=== PATIENT | female | born 1980 | race American Indian/Alaskan Native ===

== ENCOUNTER 2016-10-29 20:23 | Observation (INO) | payer OTHER ==
[2016-10-29 20:45] VITALS: BMI 25.8
[2016-10-29] MEDS ORDERED: Sodium Chloride 0.9% 1,000 ML IV STA (20:46)
[2016-10-29 21:25] LABS: ADD MANUAL DIFF? NO
[2016-10-29 21:31] LABS: BASO # 0.04 K/mm3 (0.0-2.0); BASO % 0.4 % (0.0-3.0); EOS # 0.4 (0.0-0.7); EOS % 3.4 % (1.5-5.0); GRAN # 5.74 (1.4-6.5); GRAN % 53.5 % (50.0-68.0); HEMATOCRIT 40.9 % (36.0-48.0); LYMPH % 37.5 % (22.0-35.0); MEAN CELL VOLUME 81.3 fL (80.0-105.0); MEAN CORPUSCULAR HGB CONC 33.3 g/dl (31.0-37.0); MEAN PLATELET VOLUME 8.6 fl (7.0-11.0); MONO # 0.6 (0.1-0.6); MONO % 5.2 % (1.0-6.0); PLATELET COUNT 344 10^3/uL (120.0-450.0); RED CELL DISTRIBUTION WIDTH 14.1 % (11.5-14.5); URINE APPEARANCE CLEAR (CLEAR); URINE BILIRUBIN NEGATIVE (NEGATIVE); URINE BLOOD LARGE (NEGATIVE); URINE COLOR YELLOW (YELLOW); URINE GLUCOSE (UA) NEGATIVE (NEGATIVE); URINE KETONE NEGATIVE (NEGATIVE); URINE LEUKOCYTE ESTERASE NEGATIVE Leu/uL (NEGATIVE); URINE PROTEIN 30 mg/dL (<30 mg/dL); URINE UROBILINOGEN 0.2 E.U./dL (<1 E.U./dL); WHITE BLOOD COUNT 10.7 10^3/ul (4.5-11.0)
[2016-10-29 21:44] LABS: URINE BACTERIA MOD (NEG); URINE RBC TNTC /hpf (0-2)
[2016-10-29 21:52] LABS: BLOOD UREA NITROGEN 10 mg/dL (7-21); GFR AFRICAN-AMERICAN > 60; GLUCOSE,RANDOM 98 mg/dL (70-110)
[2016-10-29 21:53] LABS: ALKALINE PHOSPHATASE 94 U/L (38-133); ALT/SGPT 30 U/L (7-56); AST/SGOT 31 U/L (15-39); BILIRUBIN,TOTAL 0.6 mg/dL (0.2-1.3); CALCIUM 9.3 mg/dL (8.4-10.5); CARBON DIOXIDE 23 mmol/L (21-33); CHLORIDE 103 mmol/L (98-107); LIPASE 74 U/L (23-300); POTASSIUM 4.1 mmol/L (3.6-5.0); SODIUM 136 mmol/L (132-148)
--- NOTE | 2016-10-29 22:34 | ED PDOC ---
Arrival/HPI - General Chief Complaint: Seizure Time Seen by Provider: 10/29/16 20:26 Historian: Patient - History of Present Illness Narrative History of Present Illness (Text): 10/29/16 22:31 Britta Nunez is a 36 year old female, with a history of chronic back pain on Flexeril and Hydrocodone, presents to the emergency department s/p witnessed seizure episode. According to her son, patient was talking on the phone when he noticed that patient was diffusely twitching and foaming from the mouth. Patient does not recall the episode and states she does not have a history of seizures. Currently complains of severe dizziness. Denies fever, chills, chest pain, shortness of breath, nausea, vomiting, or any other complaints at this time. Time/Duration: Prior to Arrival Symptom Onset: Sudden Symptom Course: Improving Activities at Onset: Light Context: Home Past Medical History - Provider Review Nursing Documentation Reviewed: Yes - Musculoskeletal/Rheumatological Hx Back Pain: Yes - Psychiatric Hx Depression: Yes Hx Substance Use: No Family/Social History - Physician Review Nursing Documentation Reviewed: Yes Family/Social History: No Known Family HX Smoking Status: Unknown If Ever Smoked Hx Alcohol Use: No Hx Substance Use: No Allergies/Home Meds Allergies/Adverse Reactions: Allergies shellfish derived Allergy (Verified 10/29/16 20:35) ANAPHYLAXIS Home Medications: Home Meds Medication Instructions Recorded Confirmed Cetirizine HCl [All Day Allergy] 0 mg PO DAILY 10/29/16 10/29/16 Codeine [Codeine Sulfate] 0 mg PO DAILY PRN 10/29/16 10/29/16 Cyclobenzaprine [Flexeril] 0 mg PO DAILY 10/29/16 10/29/16 Didanosine [Videx EC] 0 mg PO DAILY 10/29/16 10/29/16 Escitalopram [Lexapro] 0 mg PO DAILY 10/29/16 10/29/16 Review of Systems - Physician Review All systems were reviewed & negative as marked: Yes - Review of Systems Constitutional: Normal. absent: Fatigue, Fevers Respiratory: Normal. absent: SOB, Cough Cardiovascular: Normal. absent: Chest Pain, Palpitations Gastrointestinal: Normal. absent: Abdominal Pain, Diarrhea, Nausea, Vomiting Genitourinary Female: Normal. absent: Dysuria Neurological: Dizziness, Seizure Physical Exam Vital Signs Reviewed: Yes Vital Signs Temp Pulse Resp BP Pulse Ox 10/30/16 01:07 92 H 98 H 205/94 H 32 L 10/30/16 00:45 86 32 H 154/57 H 100 10/29/16 23:55 84 18 142/86 100 10/29/16 20:30 98.3 F 95 H 18 196/53 H 100 Temperature: Afebrile Blood Pressure: Hypertensive Pulse: Regular Respiratory Rate: Normal Appearance: Positive for: Well-Appearing, Non-Toxic, Comfortable Pain Distress: None Mental Status: Positive for: Alert and Oriented X 3 - Systems Exam Head: Present: Atraumatic, Normocephalic Pupils: Present: PERRL Extroacular Muscles: Present: EOMI Conjunctiva: Present: Normal Mouth: Present: Moist Mucous Membranes, Other (? tongue biting) Pharnyx: Present: Normal. No: ERYTHEMA, EXUDATE Neck: Present: Normal Range of Motion. No: MIDLINE TENDERNESS, Paraspinal Tenderness Respiratory/Chest: Present: Clear to Auscultation, Good Air Exchange. No: Respiratory Distress, Accessory Muscle Use Cardiovascular: Present: Regular Rate and Rhythm, Normal S1, S2. No: Murmurs Abdomen: Present: Normal Bowel Sounds. No: Tenderness, Distention, Peritoneal Signs, Rebound, Guarding Upper Extremity: Present: Normal Inspection. No: Cyanosis, Edema Lower Extremity: Present: Normal Inspection. No: Edema Neurological: Present: GCS=15, CN II-XII Intact, Speech Normal, Motor Func Grossly Intact, Normal Sensory Function, Normal Cerebellar Funct Skin: Present: Warm, Dry, Normal Color. No: Rashes Psychiatric: Present: Alert, Oriented x 3, Anxious Medical Decision Making ED Course and Treatment: 10/29/16 22:35 Impression: A 36 year old female who presents to the emergency department for evaluation following witnessed seizure episode prior to arrival. Patient currently complaining of dizziness. Differential Diagnosis include but are not limited to: Flexeril induced seizures vs idiopathic vs intracranial abnormality Plan: -- CT Head -- EKG -- Drug Screen -- Chest X-ray -- IV fluids -- Reassess and disposition Progress Notes: 10/30/16 00:11 Patient experienced generalized hypertonic seizure in the emergency department, which was broken with 2mg Ativan and loading with keppra 10/30/16 00:56 CT head results reviewed: IMPRESSION: No acute cranial abnormality; sinusitis 10/30/16 01:09 Case discussed with who believes patient does not need the ICU and said to admit the patient on telemetry for new onset seizure. Accepts patient under hospitalist service. 10/30/16 01:14 Patient will be admitted for neuro eval, including MRI and EEG and will need additional treatment. Will need cessation of flexeril. - Critical Care Critical Care Minutes: 30 minutes - Lab Interpretations Lab Results: 10/29/16 21:13 10/29/16 21:13 Lab Results 10/29/16 23:30: Urine Opiates Screen Positive H, Urine Methadone Screen Negative , Ur Barbiturates Screen Negative, Ur Phencyclidine Scrn Negative, Ur Amphetamines Screen Negative, U Benzodiazepines Scrn Negative, U Oth Cocaine Metabols Negative, U Cannabinoids Screen Negative 10/29/16 21:13: Sodium 136, Potassium 4.1, Chloride 103, Carbon Dioxide 23, Anion Gap 14, BUN 10, Creatinine 0.7, Est GFR ( Amer) > 60, Est GFR (Non- Af Amer) > 60, Random Glucose 98, Calcium 9.3, Magnesium 2.0, Total Bilirubin 0.6, AST 31, ALT 30, Alkaline Phosphatase 94, Total Protein 8.0, Albumin 4.1, Globulin 4.0, Albumin/Globulin Ratio 1.0 L, Lipase 74 10/29/16 21:13: Alcohol, Quantitative < 10 10/29/16 21:13: Urine Color Yellow, Urine Appearance Clear, Urine pH 6.0, Ur Specific [place] 1.025, Urine Protein 30 H, Urine Glucose (UA) Negative, Urine Ketones Negative, Urine Blood Large H, Urine Nitrate Negative, Urine Bilirubin Negative, Urine Urobilinogen 0.2, Ur Leukocyte Esterase Negative, Urine RBC Tntc , Urine WBC 1 - 3, Ur Epithelial Cells 10 - 12, Urine Bacteria Mod, Urine HCG, Qual Negative 10/29/16 21:13: WBC 10.7, RBC 5.03, Hgb 13.6, Hct 40.9, MCV 81.3, MCH 27.0, MCHC 33.3, RDW 14.1, Plt Count 344, MPV 8.6, Gran % 53.5, Lymph % (Auto) 37.5 H , Kay % (Auto) 5.2, Eos % (Auto) 3.4, Baso % (Auto) 0.4, Gran # 5.74, Lymph # 4.0 H, Kay # 0.6, Eos # 0.4, Baso # 0.04 - RAD Interpretation Narrative RAD Interpretations (Text): 10/30/16 00:55 EXAM: CT Head Without Intravenous Contrast FINDINGS: Brain: Ventricles are normal in size and configuration. There is no midline shift. There are no intraaxial or extra-axial mass lesions or areas of hemorrhage. There are no abnormal fluid collections. Davis-white differentiation is maintained. Ventricles: See above. Bones: Cranial vault is intact. Soft tissues: unremarkable Sinuses: There is an air-fluid level in the right maxillary sinus. There has been right medial antrectomy. There is a small amount of debris in the right sphenoid sinus. There is mucoperiosteal thickening in the frontal sinuses. Ears and mastoids: Middle ears and mastoids are unremarkable. There is streak artifact from an earring Orbits: Orbital contents are unremarkable. IMPRESSION: No acute cranial abnormality; sinusitis Radiology Orders: 10/29/16 20:45 HEAD W/O CONTRAST [CT] Stat 10/29/16 20:46 CHEST PORTABLE [RAD] Stat State Wildlife Officer: Radiologist - Medication Orders Current Medication Orders: Discontinued Medications Sodium Chloride (Sodium Chloride 0.9%) 1,000 mls @ 999 mls/hr IV .Q1H1M STA Stop: 10/29/16 21:46 Last Admin: 10/29/16 20:45 Dose: 999 mls/hr Levetiracetam 1,000 mg/ Sodium (Chloride) 110 mls @ 440 mls/hr IV ONCE STA Stop: 10/30/16 00:28 Last Admin: 10/30/16 01:07 Dose: 440 mls/hr Labetalol HCl (Trandate) 20 mg IV STAT STA Stop: 10/30/16 01:09 Lorazepam (Ativan) Confirm Administered Dose 2 mg .ROUTE .STK-MED ONE Stop: 10/30/16 00:08 Last Admin: 10/30/16 00:11 Dose: 2 mg - Scribe Statement The provider has reviewed the documentation as recorded by the Vesna Ritter Provider Attestation: All medical record entries made by the Vesna were at my direction and personally dictated by me. I have reviewed the chart and agree that the record accurately reflects my personal performance of the history, physical exam, medical decision making, and the department course for this patient. I have also personally directed, reviewed, and agree with the discharge instructions and disposition. Disposition/Present on Arrival - Present on Arrival Any Indicators Present on Arrival: No History of DVT/PE: No History of Uncontrolled Diabetes: No Urinary Catheter: No History of Decub. Ulcer: No History Surgical Site Infection Following: None - Disposition Have Diagnosis and Disposition been Completed?: Yes Diagnosis: New onset seizure, Uncontrolled hypertension Disposition: HOSPITALIZED Disposition Time: 01:10 Patient Plan: Admission, Telemetry Patient Problems: Current Active Problems Problem Status Onset New onset seizure Acute Uncontrolled hypertension Acute Condition: STABLE Referrals: Gilda Stevenson, [Primary Care Provider] - Follow up with primary
--- NOTE | 2016-10-30 00:45 | CT ---
EXAM: CT Head Without Intravenous Contrast CLINICAL HISTORY: 36 years old, female; Signs and symptoms; Other: Siezure; Additional info: Seizure TECHNIQUE: Axial computed tomography images of the head/brain without intravenous contrast. This CT exam was performed using one or more of the following dose reduction techniques: automated exposure control, adjustment of the mA and/or kV according to patient size, and/or use of iterative reconstruction technique. EXAM DATE/TIME: 10/29/2016 8:45 PM COMPARISON: There are no prior studies for comparison. FINDINGS: Brain: Ventricles are normal in size and configuration. There is no midline shift. There are no intra-axial or extra-axial mass lesions or areas of hemorrhage. There are no abnormal fluid collections. Davis-white differentiation is maintained. Ventricles: See above. Bones: Cranial vault is intact. Soft tissues: unremarkable Sinuses: There is an air-fluid level in the right maxillary sinus. There has been right medial antrectomy. There is a small amount of debris in the right sphenoid sinus. There is mucoperiosteal thickening in the frontal sinuses. Ears and mastoids: Middle ears and mastoids are unremarkable. There is streak artifact from an earring Orbits: Orbital contents are unremarkable. IMPRESSION: No acute cranial abnormality; sinusitis
[2016-10-30] MEDS: levETIRAcetam 1,000 MG in Sodium Chloride 0.9% 100 ML IV STA ×3 (00:49→20:46)
[2016-10-30] MEDS: Labetalol 5 mg/ml Inj 20ML IV STA ×2 (01:18→20:47)
--- NOTE | 2016-10-30 01:45 | CP.PCM.CON ---
<Esequiel Srivastava - Last Filed: 10/30/16 01:27> History of Present Illness - History of Present Illness History of Present Illness: ICU NIGHT RESIDENT CONSULT NOTE CC: "Seizure" HPI: Pt is a 36 year old female with a PMHx of chronic back pain who presented to the ED via EMS after she was seen having a witnessed seizure by her son. PT is accompanied by her mother at bedside. At time of examination, pt is asleep and lethargic due to ativan being given. According to her mother, the pt was speaking on the phone when she started to shake and foam at the mouth. This was reported to the pt's mother by the pt's son, who witnessed the event. According to the mother, the pt has never had a seizure before and she takes medication for chronic back pain. According to the mother, pt had another seizure in the ED where she began to shake was given ativan. Pt's mother reports that her daughter was speaking and tlaking after her first seizure. ROS unattainable due to pt being lethargic after ativan was given. History obtained from the mother. PMHx: Chronic back pain, sinusitis Past Surgical Hx: Sinus surgery at the [facility] Home medications: As per mar, flexeril, codeine, lexparo, videx Allergies: Shellfish Social Hx: smokes 8-10 cigarettes/day as per mother, no alcohol or drug abuse as per mother Family Hx: Diabetes Mellitus, [place] ( mother) Review of Systems - Review of Systems Systems not reviewed;Unavailable: Altered Mental Status, Other (lethargic due to ativan) Past Patient History - Past Social History Smoking Status: Unknown If Ever Smoked - MUSCULOSKELETAL/RHEUMATOLOGICAL Hx Back Pain: Yes - PSYCHIATRIC Hx Depression: Yes Hx Substance Use: No - SURGICAL HISTORY Hx Surgeries: No Meds Allergies/Adverse Reactions: Allergies Allergy/AdvReac Type Severity Reaction Status Date / Time shellfish derived Allergy ANAPHYLAXIS Verified 10/29/16 20:35 Physical Exam - Constitutional Appears: No Acute Distress - Head Exam Head Exam: ATRAUMATIC, NORMOCEPHALIC - ENT Exam ENT Exam: Mucous Membranes Moist - Neck Exam Neck exam: Positive for: Full Rom - Respiratory Exam Respiratory Exam: Clear to Auscultation Bilateral. absent: Rales, Rhonchi, Wheezes - Cardiovascular Exam Cardiovascular Exam: +S1, +S2. absent: Gallop, Rubs - GI/Abdominal Exam GI & Abdominal Exam: Soft. absent: Distended - Extremities Exam Extremities exam: Positive for: full ROM. Negative for: pedal edema - Neurological Exam Additional comments: Lethargic - Skin Skin Exam: Normal Color, Warm Results - Vital Signs Recent Vital Signs: Last Vital Signs Temp 98.3 F 10/29/16 20:30 Pulse 92 H 10/30/16 01:07 Resp 98 H 10/30/16 01:07 BP 205/94 H 10/30/16 01:07 Pulse Ox 32 L 10/30/16 01:07 - Labs Result Diagrams: 10/29/16 21:13 10/29/16 21:13 Labs: Laboratory Results - last 24 hr 10/29/16 10/29/16 10/29/16 21:13 21:13 21:13 WBC 10.7 RBC 5.03 Hgb 13.6 Hct 40.9 MCV 81.3 MCH 27.0 MCHC 33.3 RDW 14.1 Plt Count 344 MPV 8.6 Gran % 53.5 Lymph % (Auto) 37.5 H [place] % (Auto) 5.2 Eos % (Auto) 3.4 Baso % (Auto) 0.4 Gran # 5.74 Lymph # 4.0 H [place] # 0.6 Eos # 0.4 Baso # 0.04 Sodium Potassium Chloride Carbon Dioxide Anion Gap BUN Creatinine Est GFR ( Amer) Est GFR (Non-Af Amer) Random Glucose Calcium Magnesium Total Bilirubin AST ALT Alkaline Phosphatase Total Protein Albumin Globulin Albumin/Globulin Ratio Lipase Urine Color Yellow Urine Appearance Clear Urine pH 6.0 Ur Specific [place] 1.025 Urine Protein 30 H Urine Glucose (UA) Negative Urine Ketones Negative Urine Blood Large H Urine Nitrate Negative Urine Bilirubin Negative Urine Urobilinogen 0.2 Ur Leukocyte Esterase Negative Urine RBC Tntc Urine WBC 1 - 3 Ur Epithelial Cells 10 - 12 Urine Bacteria Mod Urine HCG, Qual Negative Urine Opiates Screen Urine Methadone Screen Ur Barbiturates Screen Ur Phencyclidine Scrn Ur Amphetamines Screen U Benzodiazepines Scrn U Oth Cocaine Metabols U Cannabinoids Screen Alcohol, Quantitative < 10 10/29/16 10/29/16 21:13 23:30 WBC RBC Hgb Hct MCV MCH MCHC RDW Plt Count MPV Gran % Lymph % (Auto) [place] % (Auto) Eos % (Auto) Baso % (Auto) Gran # Lymph # [place] # Eos # Baso # Sodium 136 Potassium 4.1 Chloride 103 Carbon Dioxide 23 Anion Gap 14 BUN 10 Creatinine 0.7 Est GFR ( Amer) > 60 Est GFR (Non-Af Amer) > 60 Random Glucose 98 Calcium 9.3 Magnesium 2.0 Total Bilirubin 0.6 AST 31 ALT 30 Alkaline Phosphatase 94 Total Protein 8.0 Albumin 4.1 Globulin 4.0 Albumin/Globulin Ratio 1.0 L Lipase 74 Urine Color Urine Appearance Urine pH Ur Specific [place] Urine Protein Urine Glucose (UA) Urine Ketones Urine Blood Urine Nitrate Urine Bilirubin Urine Urobilinogen Ur Leukocyte Esterase Urine RBC Urine WBC Ur Epithelial Cells Urine Bacteria Urine HCG, Qual Urine Opiates Screen Positive H Urine Methadone Screen Negative Ur Barbiturates Screen Negative Ur Phencyclidine Scrn Negative Ur Amphetamines Screen Negative U Benzodiazepines Scrn Negative U Oth Cocaine Metabols Negative U Cannabinoids Screen Negative Alcohol, Quantitative Assessment & Plan - Assessment and Plan (Free Text) Assessment: New onset seizure: Afebrile, HR-[address] - no acute intracranial abnormality; sinusitis (please see full report). Keppra 1 gm given in ED Neurology, Dr. Isaac taylor, consulted. Help appreciated. EEG pending UDS positive for opiates, likely secondary to home pain meds Seizure/Aspiration precautions Home medications held NPO Telemetry Hypertensive urgency: Hydralazine 10 mg IV q6h prn Prophylactic Measures: DVT: SCDs, Heparin 5000 units sc q12h GI: Protonix 40 mg IV qd <Angela GEORGE,Timmy - Last Filed: 11/04/16 05:47> Results - Vital Signs Recent Vital Signs: Last Vital Signs Temp 98.5 F 10/31/16 11:36 Pulse 78 10/31/16 16:44 Resp 20 10/31/16 11:36 BP 133/87 10/31/16 11:36 Pulse Ox 100 10/31/16 06:00 - Labs Result Diagrams: 10/30/16 09:15 10/30/16 09:15
[2016-10-30] MEDS ORDERED: Sodium Chloride 0.9% 1,000 ML IV SCH (02:00)
--- NOTE | 2016-10-30 02:00 | CP.PCM.HP ---
<Esequiel Srivastava - Last Filed: 10/30/16 01:58> History of Present Illness - History of Present Illness History of Present Illness: CC: "Seizure" HPI: Pt is a 36 year old female with a PMHx of chronic back pain who presented to the ED via EMS after she was seen having a witnessed seizure by her son. PT is accompanied by her mother at bedside. At time of examination, pt is asleep and lethargic due to ativan being given. According to her mother, the pt was speaking on the phone when she started to shake and foam at the mouth. This was reported to the pt's mother by the pt's son, who witnessed the event. According to the mother, the pt has never had a seizure before and she takes medication for chronic back pain. According to the mother, pt had another seizure in the ED where she began to shake was given ativan. Pt's mother reports that her daughter was speaking and tlaking after her first seizure. ROS unattainable due to pt being lethargic after ativan was given. History obtained from the mother. PMHx: Chronic back pain, sinusitis Past Surgical Hx: Sinus surgery at the [facility] Home medications: As per mar, flexeril, codeine, lexparo, videx Allergies: Shellfish Social Hx: smokes 8-10 cigarettes/day as per mother, no alcohol or drug abuse as per mother Family Hx: Diabetes Mellitus, [place] ( mother) Present on Admission - Present on Admission Any Indicators Present on Admission: No Review of Systems - Review of Systems Systems not reviewed;Unavailable: Altered Mental Status (Pt lethargic due to ativan being given secondary to seizures), Other Past Patient History - Past Social History Smoking Status: Unknown If Ever Smoked - MUSCULOSKELETAL/RHEUMATOLOGICAL Hx Back Pain: Yes - PSYCHIATRIC Hx Depression: Yes Hx Substance Use: No - SURGICAL HISTORY Hx Surgeries: No Meds Allergies/Adverse Reactions: Allergies Allergy/AdvReac Type Severity Reaction Status Date / Time shellfish derived Allergy ANAPHYLAXIS Verified 10/29/16 20:35 Physical Exam - Constitutional Appears: No Acute Distress - Head Exam Head Exam: ATRAUMATIC, NORMOCEPHALIC - ENT Exam ENT Exam: Mucous Membranes Moist. absent: Mucous Membranes Dry - Respiratory Exam Respiratory Exam: Clear to Auscultation Bilateral. absent: Rales, Rhonchi, Wheezes - Cardiovascular Exam Cardiovascular Exam: +S1, +S2. absent: Gallop, Rubs - GI/Abdominal Exam GI & Abdominal Exam: Normal Bowel Sounds, Soft - Neurological Exam Additional comments: Lethargic - Skin Skin Exam: Normal Color, Warm Results - Vital Signs Recent Vital Signs: Last Vital Signs Temp 98.3 F 10/29/16 20:30 Pulse 92 H 10/30/16 01:07 Resp 98 H 10/30/16 01:07 BP 205/94 H 10/30/16 01:07 Pulse Ox 32 L 10/30/16 01:07 - Labs Result Diagrams: 10/29/16 21:13 10/29/16 21:13 Labs: Laboratory Results - last 24 hr 10/29/16 10/29/16 10/29/16 21:13 21:13 21:13 WBC 10.7 RBC 5.03 Hgb 13.6 Hct 40.9 MCV 81.3 MCH 27.0 MCHC 33.3 RDW 14.1 Plt Count 344 MPV 8.6 Gran % 53.5 Lymph % (Auto) 37.5 H [place] % (Auto) 5.2 Eos % (Auto) 3.4 Baso % (Auto) 0.4 Gran # 5.74 Lymph # 4.0 H [place] # 0.6 Eos # 0.4 Baso # 0.04 Sodium Potassium Chloride Carbon Dioxide Anion Gap BUN Creatinine Est GFR ( Amer) Est GFR (Non-Af Amer) Random Glucose Calcium Magnesium Total Bilirubin AST ALT Alkaline Phosphatase Total Protein Albumin Globulin Albumin/Globulin Ratio Lipase Urine Color Yellow Urine Appearance Clear Urine pH 6.0 Ur Specific [place] 1.025 Urine Protein 30 H Urine Glucose (UA) Negative Urine Ketones Negative Urine Blood Large H Urine Nitrate Negative Urine Bilirubin Negative Urine Urobilinogen 0.2 Ur Leukocyte Esterase Negative Urine RBC Tntc Urine WBC 1 - 3 Ur Epithelial Cells 10 - 12 Urine Bacteria Mod Urine HCG, Qual Negative Urine Opiates Screen Urine Methadone Screen Ur Barbiturates Screen Ur Phencyclidine Scrn Ur Amphetamines Screen U Benzodiazepines Scrn U Oth Cocaine Metabols U Cannabinoids Screen Alcohol, Quantitative < 10 10/29/16 10/29/16 21:13 23:30 WBC RBC Hgb Hct MCV MCH MCHC RDW Plt Count MPV Gran % Lymph % (Auto) [place] % (Auto) Eos % (Auto) Baso % (Auto) Gran # Lymph # [place] # Eos # Baso # Sodium 136 Potassium 4.1 Chloride 103 Carbon Dioxide 23 Anion Gap 14 BUN 10 Creatinine 0.7 Est GFR ( Amer) > 60 Est GFR (Non-Af Amer) > 60 Random Glucose 98 Calcium 9.3 Magnesium 2.0 Total Bilirubin 0.6 AST 31 ALT 30 Alkaline Phosphatase 94 Total Protein 8.0 Albumin 4.1 Globulin 4.0 Albumin/Globulin Ratio 1.0 L Lipase 74 Urine Color Urine Appearance Urine pH Ur Specific [place] Urine Protein Urine Glucose (UA) Urine Ketones Urine Blood Urine Nitrate Urine Bilirubin Urine Urobilinogen Ur Leukocyte Esterase Urine RBC Urine WBC Ur Epithelial Cells Urine Bacteria Urine HCG, Qual Urine Opiates Screen Positive H Urine Methadone Screen Negative Ur Barbiturates Screen Negative Ur Phencyclidine Scrn Negative Ur Amphetamines Screen Negative U Benzodiazepines Scrn Negative U Oth Cocaine Metabols Negative U Cannabinoids Screen Negative Alcohol, Quantitative Assessment & Plan - Assessment and Plan (Free Text) Assessment: New onset seizure: Afebrile, HR-[address] - no acute intracranial abnormality; sinusitis (please see full report). Keppra 1 gm given in ED Neurology, Dr. Isaac taylor, consulted. Help appreciated. EEG pending UDS positive for opiates, likely secondary to home pain meds Seizure/Aspiration precautions Home medications held NPO Telemetry Hypertensive urgency: Hydralazine 10 mg IV q6h prn Prophylactic Measures: DVT: SCDs, Heparin 5000 units sc q12h GI: Protonix 40 mg IV qd <Angela GEORGE,Timmy - Last Filed: 10/30/16 14:37> Results - Vital Signs Recent Vital Signs: Last Vital Signs Temp 100 F H 10/30/16 12:00 Pulse 90 10/30/16 12:00 Resp 18 10/30/16 12:00 BP 102/60 10/30/16 12:00 Pulse Ox 100 10/30/16 06:00 - Labs Result Diagrams: 10/30/16 09:15 10/30/16 09:15 Labs: Laboratory Results - last 24 hr 10/30/16 10/30/16 10/30/16 09:15 09:15 09:15 WBC 10.5 RBC 4.56 Hgb 12.3 Hct 37.0 MCV 81.1 MCH 27.0 MCHC 33.2 RDW 14.0 Plt Count 333 MPV 8.4 Gran % 64.7 Lymph % (Auto) 27.0 [place] % (Auto) 6.8 H Eos % (Auto) 1.3 L Baso % (Auto) 0.2 Gran # 6.81 H Lymph # 2.9 [place] # 0.7 H Eos # 0.1 Baso # 0.02 APTT 24.4 Sodium 140 Potassium 3.6 Chloride 109 H Carbon Dioxide 24 Anion Gap 11 BUN 7 Creatinine 0.7 Est GFR ( Amer) > 60 Est GFR (Non-Af Amer) > 60 Random Glucose 78 Calcium 8.5 Phosphorus 2.8 Magnesium 2.0 Total Bilirubin 0.7 AST 21 ALT 27 Alkaline Phosphatase 85 Total Protein 6.8 Albumin 3.3 Globulin 3.5 Albumin/Globulin Ratio 0.9 L Attending/Attestation - Attestation I have personally seen and examined this patient.: Yes I have fully participated in the care of the patient.: Yes I have reviewed all pertinent clinical information: Yes Notes (Text): 10/30/16 14:36 -I agree with the above H&P completed by the resident physician.
[2016-10-30 02:13] VITALS: O2SAT 100
[2016-10-30] MEDS: Metoprolol 1 mg/ml Inj IVP STA ×2 (02:59→20:47)
[2016-10-30] MEDS: Sodium Chloride 0.9% 250 ML IV SCH ×3 (03:43→20:47)
[2016-10-30] MEDS ORDERED: Pneumococcal 23-Valent Vaccine IM ONE (05:18)
--- NOTE | 2016-10-30 08:53 | RAD ---
HISTORY: new onset seizure COMPARISON: No prior. FINDINGS: LUNGS: The lungs are clear. PLEURA: No significant pleural effusion identified, no pneumothorax apparent. CARDIOVASCULAR: Normal. OSSEOUS STRUCTURES: No significant abnormalities. VISUALIZED UPPER ABDOMEN: Normal. OTHER FINDINGS: None. IMPRESSION: No acute findings.
[2016-10-30 09:22] LABS: ADD MANUAL DIFF? NO
[2016-10-30 09:29] LABS: BASO # 0.02 K/mm3 (0.0-2.0); BASO % 0.2 % (0.0-3.0); EOS # 0.1 (0.0-0.7); EOS % 1.3 % (1.5-5.0); GRAN # 6.81 (1.4-6.5); GRAN % 64.7 % (50.0-68.0); LYMPH # 2.9 (1.2-3.4); MEAN CELL VOLUME 81.1 fL (80.0-105.0); MEAN CORPUSCULAR HGB CONC 33.2 g/dl (31.0-37.0); MEAN PLATELET VOLUME 8.4 fl (7.0-11.0); MONO # 0.7 (0.1-0.6); MONO % 6.8 % (1.0-6.0); PLATELET COUNT 333 10^3/uL (120.0-450.0); WHITE BLOOD COUNT 10.5 10^3/ul (4.5-11.0)
[2016-10-30 09:36] LABS: ALB/GLOB RATIO 0.9 (1.1-1.8); ALKALINE PHOSPHATASE 85 U/L (38-133); ALT/SGPT 27 U/L (7-56); AST/SGOT 21 U/L (15-39); BILIRUBIN,TOTAL 0.7 mg/dL (0.2-1.3); BLOOD UREA NITROGEN 7 mg/dL (7-21); CALCIUM 8.5 mg/dL (8.4-10.5); CARBON DIOXIDE 24 mmol/L (21-33); CHLORIDE 109 mmol/L (98-107); GFR AFRICAN-AMERICAN > 60; GLUCOSE,RANDOM 78 mg/dL (70-110); PHOSPHOROUS 2.8 mg/dL (2.5-4.5); POTASSIUM 3.6 mmol/L (3.6-5.0); SODIUM 140 mmol/L (132-148); TOTAL PROTEIN 6.8 g/dL (5.8-8.3)
[2016-10-30] MEDS ORDERED: Lidocaine 2% Viscous 100 ml PO PRN (12:44)
--- NOTE | 2016-10-30 13:22 | CP.PCM.PN ---
Subjective - Date & Time of Evaluation Date of Evaluation: 10/30/16 Time of Evaluation: 07:35 - Subjective Subjective: Pt seen and evaluated at bedside. Pt is lethargic but rousable. Denies pain except from sore tongue, and denies SKELTON, SOB, chest pain, abdominal pain, n/v, urinary symptoms and denies irregular stool. Objective - Vital Signs/Intake and Output Vital Signs (last 24 hours): Temp Pulse Resp BP Pulse Ox 100 F H 90 18 102/60 100 10/30/16 12:00 10/30/16 12:00 10/30/16 12:00 10/30/16 12:00 10/30/16 06:00 Intake and Output: 10/30/16 10/30/16 06:59 18:59 Intake Total 0 Output Total 0 Balance 0 - Medications Medications: Current Medications Heparin Sodium (Porcine) (Heparin) 5,000 units SC Q12 KISHA PRN Reason: Protocol Last Admin: 10/30/16 09:00 Dose: 5,000 units Hydralazine HCl (Apresoline) 10 mg IVP Q6H PRN PRN Reason: Systolic Blood Pressure Last Admin: 10/30/16 02:12 Dose: 10 mg Lidocaine HCl (Lidocaine 2% Viscous) 15 ml MM Q3H PRN PRN Reason: SWISH AND SPIT FOR MOUTH PAIN. Lorazepam (Ativan) 2 mg IVP Q6H PRN; Protocol PRN Reason: Seizure activity Pantoprazole Sodium (Protonix Inj) 40 mg IVP DAILY [facility] Last Admin: 10/30/16 09:00 Dose: 40 mg - Labs Labs: 10/30/16 09:15 10/30/16 09:15 APTT 24.4 Seconds (23.7-30.8) 10/30/16 09:15
--- NOTE | 2016-10-30 17:12 | CARD ---
APPROVED REPORT EKG Measurement Heart [id number] <Conclusion> Sinus rhythm with marked sinus arrhythmia Otherwise normal ECG
[2016-10-30 18:12] VITALS: RESP 20
--- NOTE | 2016-10-30 19:56 | MRI ---
EXAM: MR Head Without Intravenous Contrast CLINICAL HISTORY: 36 years old, female; Injury or trauma; Fall; Initial encounter; Concussion / head injury; Consciousness not specified; Injury date: Unsure; Injury details: Patient fell, ? seizures. Limited study patient moving a lot even with sedation; Additional info: Seizures; Patient fell and hit head TECHNIQUE: Magnetic resonance images of the head/brain without intravenous contrast in multiple planes. EXAM DATE/TIME: 10/30/2016 6:07 PM COMPARISON: Recent head CT of 10/30/2016 12:24 AM FINDINGS: LIMITATIONS: Exam is limited by moderate motion artifact. BRAIN: No evidence of restricted diffusion/acute infarct. No findings to suggest acute intracranial hemorrhage. No signal abnormality is seen to suggest significant intracranial edema. No acute extra-axial fluid collections visualized. No evidence of significant mass effect within the brain. VENTRICLES: No evidence of significant hydrocephalus. BONES/JOINTS: No acute bony abnormality visualized. SINUSES: Pansinus inflammatory disease. There is mild to moderate mucosal thickening in the bilateral maxillary, bilateral anterior ethmoid, and bilateral frontal sinuses. There is fluid in the right maxillary sinus, which is most likely secondary to acute sinusitis. MASTOID AIR CELLS: No evidence of significant mastoid fluid. SELLA: Incidental note is made of a partially empty sella. IMPRESSION: - No acute intracranial findings seen, allowing for motion artifact. - See above for remaining findings.
[2016-10-31 11:39] VITALS: BP 133/87; TEMP 98.5
--- NOTE | 2016-10-31 16:35 | CP.PCM.DIS ---
<Padmini Colvin - Last Filed: 11/19/16 00:21> Provider - Provider Date of Admission: 10/30/16 01:09 Attending physician: Adeel Toussaint MD Primary care physician: singh Guthrie in [place] system [facility] Consults: Dr. Weathers Time Spent in preparation of Discharge (in minutes): 35 Hospital Course - Lab Results Lab Results: Most Recent Lab Values WBC 10.5 10^3/ul (4.5-11.0) 10/30/16 09:15 RBC 4.56 10^6/uL (3.5-6.1) 10/30/16 09:15 Hgb 12.3 gm/dL (12.0-16.0) 10/30/16 09:15 Hct 37.0 % (36.0-48.0) 10/30/16 09:15 MCV 81.1 fL (80.0-105.0) 10/30/16 09:15 MCH 27.0 pg (25.0-35.0) 10/30/16 09:15 MCHC 33.2 g/dl (31.0-37.0) 10/30/16 09:15 RDW 14.0 % (11.5-14.5) 10/30/16 09:15 Plt Count 333 10^3/uL (120.0-450.0) 10/30/16 09:15 MPV 8.4 fl (7.0-11.0) 10/30/16 09:15 Gran % 64.7 % (50.0-68.0) 10/30/16 09:15 Lymph % (Auto) 27.0 % (22.0-35.0) 10/30/16 09:15 [place] % (Auto) 6.8 % (1.0-6.0) H 10/30/16 09:15 Eos % (Auto) 1.3 % (1.5-5.0) L 10/30/16 09:15 Baso % (Auto) 0.2 % (0.0-3.0) 10/30/16 09:15 Gran # 6.81 (1.4-6.5) H 10/30/16 09:15 Lymph # 2.9 (1.2-3.4) 10/30/16 09:15 [place] # 0.7 (0.1-0.6) H 10/30/16 09:15 Eos # 0.1 (0.0-0.7) 10/30/16 09:15 Baso # 0.02 K/mm3 (0.0-2.0) 10/30/16 09:15 APTT 24.4 Seconds (23.7-30.8) 10/30/16 09:15 Sodium 140 mmol/L (132-148) 10/30/16 09:15 Potassium 3.6 mmol/L (3.6-5.0) 10/30/16 09:15 Chloride 109 mmol/L (98-107) H 10/30/16 09:15 Carbon Dioxide 24 mmol/L (21-33) 10/30/16 09:15 Anion Gap 11 (10-20) 10/30/16 09:15 BUN 7 mg/dL (7-21) 10/30/16 09:15 Creatinine 0.7 mg/dL (0.5-1.4) 10/30/16 09:15 Est GFR ( Amer) > 60 10/30/16 09:15 Est GFR (Non-Af Amer) > 60 10/30/16 09:15 Random Glucose 78 mg/dL (70-110) 10/30/16 09:15 Calcium 8.5 mg/dL (8.4-10.5) 10/30/16 09:15 Phosphorus 2.8 mg/dL (2.5-4.5) 10/30/16 09:15 Magnesium 2.0 mg/dL (1.7-2.2) 10/30/16 09:15 Total Bilirubin 0.7 mg/dL (0.2-1.3) 10/30/16 09:15 AST 21 U/L (15-39) 10/30/16 09:15 ALT 27 U/L (7-56) 10/30/16 09:15 Alkaline Phosphatase 85 U/L (38-133) 10/30/16 09:15 Total Protein 6.8 g/dL (5.8-8.3) 10/30/16 09:15 Albumin 3.3 g/dL (3.0-4.8) 10/30/16 09:15 Globulin 3.5 gm/dL 10/30/16 09:15 Albumin/Globulin Ratio 0.9 (1.1-1.8) L 10/30/16 09:15 Lipase 74 U/L (23-300) 10/29/16 21:13 Urine Color Yellow (YELLOW) 10/29/16 21:13 Urine Appearance Clear (CLEAR) 10/29/16 21:13 Urine pH 6.0 (4.7-8.0) 10/29/16 21:13 Ur Specific [place] 1.025 (1.005-1.035) 10/29/16 21:13 Urine Protein 30 mg/dL (<30 mg/dL) H 10/29/16 21:13 Urine Glucose (UA) Negative mg/dL (NEGATIVE) 10/29/16 21:13 Urine Ketones Negative mg/dL (NEGATIVE) 10/29/16 21:13 Urine Blood Large (NEGATIVE) H 10/29/16 21:13 Urine Nitrate Negative (NEGATIVE) 10/29/16 21:13 Urine Bilirubin Negative (NEGATIVE) 10/29/16 21:13 Urine Urobilinogen 0.2 E.U./dL (<1 E.U./dL) 10/29/16 21:13 Ur Leukocyte Esterase Negative Stephanie/uL (NEGATIVE) 10/29/16 21:13 Urine RBC Tntc /hpf (0-2) 10/29/16 21:13 Urine WBC 1 - 3 /hpf (0-6) 10/29/16 21:13 Ur Epithelial Cells 10 - 12 /hpf (0-5) 10/29/16 21:13 Urine Bacteria Mod (NEG) 10/29/16 21:13 Urine HCG, Qual Negative (NEGATIVE) 10/29/16 21:13 Urine Opiates Screen Positive (NEGATIVE) H 10/29/16 23:30 Urine Methadone Screen Negative (NEGATIVE) 10/29/16 23:30 Ur Barbiturates Screen Negative (NEGATIVE) 10/29/16 23:30 Ur Phencyclidine Scrn Negative (NEGATIVE) 10/29/16 23:30 Ur Amphetamines Screen Negative (NEGATIVE) 10/29/16 23:30 U Benzodiazepines Scrn Negative (NEGATIVE) 10/29/16 23:30 U Oth Cocaine Metabols Negative (NEGATIVE) 10/29/16 23:30 U Cannabinoids Screen Negative (NEGATIVE) 10/29/16 23:30 Alcohol, Quantitative < 10 mg/dL (0-10) 10/29/16 21:13 - Hospital Course Hospital Course: 36 year old female with a PMHx of chronic back pain who presented to the ED via EMS after she was seen having a witnessed seizure. Pt was speaking on the phone when she started to shake and foam at the mouth. Pt has never had a seizure before. Pt had another seizure in the ED where she began to shake, and was given ativan. Pt was speaking and talking after her first seizure. Admitted for Generalized tonic-clonic seizure to telemetry. On floor, Neurology was consulted and pt administered Keppra 500mg BID and remained without seizure throughout admission, without need for use of active ativan prn. MRI brain w/o contrast: no acute findings. EEG: "diffuse slowing throughout recording, consisitent w/ b/l cerebral dysfunction. No evidence of any epileptiform activity." D/C in stable condition with the following instructions: You are discharged home. Please follow-up with your primary care doctor within a week. Please follow-up with Dr. Weathers within a week. Please start your new medication of Keppra 500mg by mouth twice daily. Please do not drive. Please stop using tramadol. Please return to the emergency department for worsening of symptoms. Discharge Exam - Head Exam Head Exam: ATRAUMATIC, NORMOCEPHALIC - Eye Exam Eye Exam: EOMI, Normal appearance Pupil Exam: NORMAL ACCOMODATION, PERRL - Respiratory Exam Respiratory Exam: Clear to PA & Lateral, NORMAL BREATHING PATTERN - Cardiovascular Exam Cardiovascular Exam: +S1, +S2. absent: Tachycardia - GI/Abdominal Exam GI & Abdominal Exam: Soft. absent: Tenderness - Exam External exam: absent: Lesions, Swelling - Extremities Exam Extremities exam: normal inspection, pedal pulses present - Back Exam Back exam: absent: CVA tenderness (L), CVA tenderness (R) - Neurological Exam Neurological exam: Alert, Oriented x3 - Skin Skin Exam: Normal Color, Warm Discharge Plan - Discharge Medications Prescriptions: Levetiracetam [Keppra] 500 mg PO BID #28 tablet - Follow Up Plan Condition: STABLE Disposition: HOME/ ROUTINE Instructions: Hypertension (DC), Hypertension (GEN), New-Onset Seizure in Adults (DC) Additional Instructions: You are discharged home. Please follow-up with your primary care doctor within a week. Please follow-up with Dr. Weathers within a week. Please start your new medication of Keppra 500mg by mouth twice daily. Please do not drive. Please stop using tramadol. Please return to the emergency department for worsening of symptoms. ANY CHEST PAIN, SHORTNESS OF BREATH OR SEIZURE ACTIVITY PLEASE CALL 911 MEDS PER MD ORDERS FOLLOW UP WITH PMD IN THE OFFICE Referrals: Jase Weathers MD [Staff Provider] - <Adeel Toussaint MD - Last Filed: 11/23/16 10:24> Provider - Provider Date of Admission: 10/30/16 01:09 Attending physician: Adeel Toussaint MD Hospital Course - Lab Results Lab Results: Most Recent Lab Values WBC 10.5 10^3/ul (4.5-11.0) 10/30/16 09:15 RBC 4.56 10^6/uL (3.5-6.1) 10/30/16 09:15 Hgb 12.3 gm/dL (12.0-16.0) 10/30/16 09:15 Hct 37.0 % (36.0-48.0) 10/30/16 09:15 MCV 81.1 fL (80.0-105.0) 10/30/16 09:15 MCH 27.0 pg (25.0-35.0) 10/30/16 09:15 MCHC 33.2 g/dl (31.0-37.0) 10/30/16 09:15 RDW 14.0 % (11.5-14.5) 10/30/16 09:15 Plt Count 333 10^3/uL (120.0-450.0) 10/30/16 09:15 MPV 8.4 fl (7.0-11.0) 10/30/16 09:15 Gran % 64.7 % (50.0-68.0) 10/30/16 09:15 Lymph % (Auto) 27.0 % (22.0-35.0) 10/30/16 09:15 [place] % (Auto) 6.8 % (1.0-6.0) H 10/30/16 09:15 Eos % (Auto) 1.3 % (1.5-5.0) L 10/30/16 09:15 Baso % (Auto) 0.2 % (0.0-3.0) 10/30/16 09:15 Gran # 6.81 (1.4-6.5) H 10/30/16 09:15 Lymph # 2.9 (1.2-3.4) 10/30/16 09:15 [place] # 0.7 (0.1-0.6) H 10/30/16 09:15 Eos # 0.1 (0.0-0.7) 10/30/16 09:15 Baso # 0.02 K/mm3 (0.0-2.0) 10/30/16 09:15 APTT 24.4 Seconds (23.7-30.8) 10/30/16 09:15 Sodium 140 mmol/L (132-148) 10/30/16 09:15 Potassium 3.6 mmol/L (3.6-5.0) 10/30/16 09:15 Chloride 109 mmol/L (98-107) H 10/30/16 09:15 Carbon Dioxide 24 mmol/L (21-33) 10/30/16 09:15 Anion Gap 11 (10-20) 10/30/16 09:15 BUN 7 mg/dL (7-21) 10/30/16 09:15 Creatinine 0.7 mg/dL (0.5-1.4) 10/30/16 09:15 Est GFR ( Amer) > 60 10/30/16 09:15 Est GFR (Non-Af Amer) > 60 10/30/16 09:15 Random Glucose 78 mg/dL (70-110) 10/30/16 09:15 Calcium 8.5 mg/dL (8.4-10.5) 10/30/16 09:15 Phosphorus 2.8 mg/dL (2.5-4.5) 10/30/16 09:15 Magnesium 2.0 mg/dL (1.7-2.2) 10/30/16 09:15 Total Bilirubin 0.7 mg/dL (0.2-1.3) 10/30/16 09:15 AST 21 U/L (15-39) 10/30/16 09:15 ALT 27 U/L (7-56) 10/30/16 09:15 Alkaline Phosphatase 85 U/L (38-133) 10/30/16 09:15 Total Protein 6.8 g/dL (5.8-8.3) 10/30/16 09:15 Albumin 3.3 g/dL (3.0-4.8) 10/30/16 09:15 Globulin 3.5 gm/dL 10/30/16 09:15 Albumin/Globulin Ratio 0.9 (1.1-1.8) L 10/30/16 09:15 Lipase 74 U/L (23-300) 10/29/16 21:13 Urine Color Yellow (YELLOW) 10/29/16 21:13 Urine Appearance Clear (CLEAR) 10/29/16 21:13 Urine pH 6.0 (4.7-8.0) 10/29/16 21:13 Ur Specific [place] 1.025 (1.005-1.035) 10/29/16 21:13 Urine Protein 30 mg/dL (<30 mg/dL) H 10/29/16 21:13 Urine Glucose (UA) Negative mg/dL (NEGATIVE) 10/29/16 21:13 Urine Ketones Negative mg/dL (NEGATIVE) 10/29/16 21:13 Urine Blood Large (NEGATIVE) H 10/29/16 21:13 Urine Nitrate Negative (NEGATIVE) 10/29/16 21:13 Urine Bilirubin Negative (NEGATIVE) 10/29/16 21:13 Urine Urobilinogen 0.2 E.U./dL (<1 E.U./dL) 10/29/16 21:13 Ur Leukocyte Esterase Negative [place]/uL (NEGATIVE) 10/29/16 21:13 Urine RBC Tntc /hpf (0-2) 10/29/16 21:13 Urine WBC 1 - 3 /hpf (0-6) 10/29/16 21:13 Ur Epithelial Cells 10 - 12 /hpf (0-5) 10/29/16 21:13 Urine Bacteria Mod (NEG) 10/29/16 21:13 Urine HCG, Qual Negative (NEGATIVE) 10/29/16 21:13 Urine Opiates Screen Positive (NEGATIVE) H 10/29/16 23:30 Urine Methadone Screen Negative (NEGATIVE) 10/29/16 23:30 Ur Barbiturates Screen Negative (NEGATIVE) 10/29/16 23:30 Ur Phencyclidine Scrn Negative (NEGATIVE) 10/29/16 23:30 Ur Amphetamines Screen Negative (NEGATIVE) 10/29/16 23:30 U Benzodiazepines Scrn Negative (NEGATIVE) 10/29/16 23:30 U Oth Cocaine Metabols Negative (NEGATIVE) 10/29/16 23:30 U Cannabinoids Screen Negative (NEGATIVE) 10/29/16 23:30 Alcohol, Quantitative < 10 mg/dL (0-10) 10/29/16 21:13 Attending/Attestation - Attestation I have personally seen and examined this patient.: Yes I have fully participated in the care of the patient.: Yes I have reviewed all pertinent clinical information, including history, physical exam and plan: Yes Notes (Text): 11/23/16 10:22 Patient was seen and examined with medical reception specialist .Agreed with resident assessment and plan. 36 year old female with a PMHx of chronic back pain who presented to the ED via EMS after she was seen having a witnessed seizure. She was admitted in the hospital, did not has any further seizure, was started on Keppra,MRI of brain was normal.She has been advised not to drive.[facility]Shw will be discharged home and will follow up with PCP and Neurology. Management plan was discussed in detail with patient Education was provided.
[2016-10-31 16:51] VITALS: PULSE 78
--- NOTE | 2016-11-02 17:50 | EEG ---
DATE: 10/30/2016 STUDY PERFORMED: EEG. CONDITION ON THIS RECORDING: Drowsy. DIAGNOSIS: Seizures. MEDICATIONS: Keppra and . INTERPRETATION: This is a 16-channel international recording. The background activity was composed of 6-7 cycles per second. There was limited amount of beta activity of 16-20 cycles per second seen in this recording. There was increased amount of theta activity 5-7 cycles per second seen in this t racing. Drowsiness was characterized by mixed beta and theta activities. Sleep was characterized by vertex transient waves, sleep spindles and bilateral slowing. Photic stimulation showed no change i n the tracing. No paroxysmal activity noted in this recording. CONCLUSION: This is an abnormal EEG due to presence of diffuse slowing throughout the recording, con sistent with bilateral cerebral dysfunction. No evidence of any epileptiform activity. Please clini tracy correlate. Inderjit Weathers MD cc: [id number] TT: 11/02/2016 17:49:42 Confirmation # [id number] Dictation # [id number] ln
== END 2016-10-31 19:35 | disposition home or self-care (01) ==
LOC: ED 20:23 → INTOOBSV 10-30 01:09 → ERH 10-30 01:09 → 2RSO 10-30 04:54
PROVIDERS: ADMIT Internal Medicine; ATTEND Internal Medicine
DX: R56.9 Unspecified convulsions (principal); I16.0 Hypertensive urgency; G89.29 Other chronic pain; M54.9 Dorsalgia, unspecified; F17.210 Nicotine dependence, cigarettes, uncomplicated; Z83.3 Family history of diabetes mellitus; Z82.49 Family history of ischemic heart disease and other diseases of the circulatory system
CPT/HCPCS: 36415; 70450; 70551; 71010; 80053; 80320; 80324; 80345; 80346; 80349; 80353; 80358; 80361; 81001; 83690; 83735; 83992; 84100; 84703; 85025; 85730; 92610; 93005; 95812; 96361; 96365; 96375; 99285; C9113; G0378; G8996; G8997; G8998; J0360; J1644; J1953; J2060; J7040

== ENCOUNTER 2018-03-27 19:09 | Emergency (ER) | payer OTHER ==
[2018-03-27 19:11] VITALS: BMI 25.8
[2018-03-27 19:22] VITALS: TEMP 98.5; O2SAT 100
--- NOTE | 2018-03-27 19:25 | ED PDOC ---
Arrival/HPI - General Time Seen by Provider: 03/27/18 19:15 Historian: Patient, Family (son) - History of Present Illness Narrative History of Present Illness (Text): 03/27/18 19:15 A 37 year old female, whose past medical history includes seizure disorder (takes Keppra 500 mg), brought in by EMS and accompanied by family, presents to the emergency department complaining of seizure episode. Per patient's son, patient was found in drooling in bed. Son states patient was starting at him with "big eyes" and was non-responsive for approximately 57 seconds. Afterwards son immediately called 911 afterwards. Per EMS, patient has had seizure in the past, last in July 2017. At that time, patient had 1 seizure episode at home and 3 times in the Emergency room. Patient states she takes Keppra 500 mg, however only takes it once daily due to believing medication causes her to feel angry. Patient does not mention any other complaints at this time. PMD: Dr. Asencio ([facility] Past Medical History - Provider Review Nursing Documentation Reviewed: Yes - Cardiac Hx Cardiac Disorders: No - Pulmonary Hx Respiratory Disorders: No - Neurological Hx Neurological Disorder: Yes Hx Seizures: Yes (new onset 10/29/16) - HEENT Hx HEENT Disorder: Yes (wears glasses) - Renal Hx Renal Disorder: No - Endocrine/Metabolic Hx Endocrine Disorders: No - Hematological/Oncological Hx Blood Disorders: No - Integumentary Hx Dermatological Disorder: No - Musculoskeletal/Rheumatological Hx Falls: No - Gastrointestinal Hx Gastrointestinal Disorders: No - Genitourinary/Gynecological Hx Genitourinary Disorders: No - Psychiatric Hx Psychophysiologic Disorder: Yes Hx Anxiety: Yes Hx Depression: Yes Hx Substance Use: No Other/Comment: Claustrophobic Family/Social History - Physician Review Nursing Documentation Reviewed: Yes Family/Social History: No Known Family HX Smoking Status: Light Smoker < 10 Cigarettes Daily Hx Alcohol Use: Yes (Social) Hx Substance Use: No Allergies/Home Meds Allergies/Adverse Reactions: Allergies shellfish derived Allergy (Verified 10/29/16 20:35) ANAPHYLAXIS spinach Adverse Reaction (Verified 03/27/18 19:21) RASH Home Medications: Home Meds Medication Instructions Recorded Confirmed Cetirizine HCl [All Day Allergy] 0 mg PO DAILY 10/29/16 10/29/16 Codeine [Codeine Sulfate] 0 mg PO DAILY PRN 10/29/16 10/29/16 Cyclobenzaprine [Flexeril] 0 mg PO DAILY 10/29/16 10/29/16 Didanosine [Videx EC] 0 mg PO DAILY 10/29/16 10/29/16 Escitalopram [Lexapro] 0 mg PO DAILY 10/29/16 10/29/16 Review of Systems - Physician Review All systems were reviewed & negative as marked: Yes - Review of Systems Cardiovascular: absent: Syncope Neurological: Seizure Physical Exam - Physical Exam Narrative Physical Exam (Text): Gen: VS reviewed, alert, well developed, well nourished, nontoxic, mild distress. ENT: normal pharynx Eye: EOMI, PERRL Neck: no JVD, supple, no adenopathy CV: regular rate, regular rhythm, no rubs, no murmur, no gallops, S1, S2, pulses equal and strong Pulm: no distress, clear to auscultation, no wheeze, no rhonchi, breath sounds equal, no rales Abd: soft, nontender, no guarding, no rebound, no rigidity, normal bowel sounds Ext: no edema Skin: good color, no rash, no cyanosis Psych: responds appropriately to questions, normal affect Neuro: oriented x 3, CN2-12 intact grossly, motor intact, sensation intact Mouth: left lip laceration, no active bleeding. Vital Signs Reviewed: Yes Temperature: Afebrile Blood Pressure: Normal Pulse: Regular Respiratory Rate: Normal Appearance: Positive for: Well-Appearing, Non-Toxic, Comfortable Pain Distress: Mild Mental Status: Positive for: Alert and Oriented X 3 Medical Decision Making ED Course and Treatment: 03/27/18 19:19 Impression: 37 year old female brought in for seizure episode. Plan: -- EKG -- Labs -- POC Urine Test -- Reassess and disposition Progress Notes: 03/27/18 21:43 patient seen for breakthrough witnessed seizure. patient remained stable t hroughout ED course. patient is awake and alert, clear speech and steady gait. patient does not want to stay any longer in the ED. patient states she does not even want to stay in the ED to take her PM dose of keppra. patient reports that she does not take a typical regimen of keppra because it "makes her more angry". patient to be discharged with family member at bedside. - EKG Interpretation EKG Interpretation (Text): 03/27/18 21:09 1927: nsr at 76 bpm, nml qrs, nml axis, no acute sttw abn Interpreted by ED Physician: Yes - Scribe Statement The provider has reviewed the documentation as recorded by the Vesna Payne Provider Scribe Provider Scribe Attestation: All medical record entries made by the Vesna were at my direction and personally dictated by me. I have reviewed the chart and agree that the record accurately reflects my personal performance of the history, physical exam, medical decision making, and the department course for this patient. I have also personally directed, reviewed, and agree with the discharge instructions and disposition. Disposition/Present on Arrival - Present on Arrival Any Indicators Present on Arrival: No History of DVT/PE: No History of Uncontrolled Diabetes: No Urinary Catheter: No History of Decub. Ulcer: No History Surgical Site Infection Following: None - Disposition Have Diagnosis and Disposition been Completed?: Yes Diagnosis: Seizure disorder Disposition: HOME/ ROUTINE Disposition Time: 21:46 Patient Plan: Discharge Condition: STABLE Discharge Instructions (ExitCare): Seizures, Adult (DC) Additional Instructions: Return for any problems or concerns. Follow up with your neurologist as soon as possible. DARLENE LEVINE, thank you for letting us take care of you today. Your provider was Dr. Lowell Ga and you were treated for seizure. The emergency medical care you received today was directed at your acute symptoms. If you were prescribed any medication, please fill it and take as directed. It may take several days for your symptoms to resolve. Return to the Emergency Department if your symptoms worsen, do not improve, or if you have any other problems. Please contact your doctor or call one of the physicians/clinics you have been referred to that are listed on the Patient Visit Information form that is included in your discharge packet. Bring any paperwork you were given at discharge with you along with any medications you are taking to your follow up visit. Our treatment cannot replace ongoing medical care by a primary care provider outside of the emergency department. Thank you for allowing the [facility] team to be part of your care today. If you had an X-Ray or CT scan: A Radiologist will review the ED reading if any change in treatment is needed we will contact you. If you had a blood, urine, or wound culture: It will take several days for the results, if any change in treatment is needed we will contact you. If you had an STI test: It will take 48 hours for the results. Please call after 1 week if you have not heard back. Forms: Lateral SV (Yi), WORK NOTE
[2018-03-27 20:40] LABS: BASO # 0.03 K/mm3 (0.0-2.0); BASO % 0.4 % (0.0-3.0); EOS # 0.2 (0.0-0.7); EOS % 2.8 % (1.5-5.0); GRAN # 4.88 (1.4-6.5); GRAN % 57.1 % (50.0-68.0); HEMOGLOBIN 13.3 g/dL (12.0-16.0); LYMPH # 2.9 (1.2-3.4); LYMPH % 34.1 % (22.0-35.0); MEAN CELL VOLUME 81.3 fl (80.0-105.0); MEAN CORPUSCULAR HGB CONC 33.3 g/dl (31.0-37.0); MEAN PLATELET VOLUME 8.7 fl (7.0-11.0); MONO # 0.5 (0.1-0.6); MONO % 5.6 % (1.0-6.0); RBC 4.92 10^6/uL (3.5-6.1); RED CELL DISTRIBUTION WIDTH 13.3 % (11.5-14.5); WHITE BLOOD COUNT 8.5 10^3/ul (4.5-11.0)
[2018-03-27 20:43] LABS: OPIATES, UR NEGATIVE (NEGATIVE)
[2018-03-27 20:52] LABS: BARBITURATES, UR NEGATIVE (NEGATIVE); BENZODIAZEPINES, UR NEGATIVE (NEGATIVE); PHENCYCLIDINE, UR NEGATIVE (NEGATIVE)
[2018-03-27 20:59] LABS: ALB/GLOB RATIO 1.1 (1.1-1.8); ALBUMIN 3.7 g/dL (3.0-4.8); ALT/SGPT 17 U/L (7-56); AST/SGOT 17 U/L (14-36); BLOOD UREA NITROGEN 6 mg/dL (7-21); CALCIUM 8.8 mg/dL (8.4-10.5); GFR NON-AFRICAN AMERICAN > 60
[2018-03-27] MEDS ORDERED: Potassium Chloride 20 mEq ER Tab PO STA (21:10)
[2018-03-27 21:22] VITALS: BP 129/76; PULSE 65; RESP 24
--- NOTE | 2018-03-28 09:47 | CARD ---
APPROVED REPORT Date of service: 03/27/2018 EKG Measurement Heart [id number] <Conclusion> Normal sinus rhythm Normal ECG No change
== END 2018-03-27 21:51 | disposition home or self-care (01) ==
LOC: ED 19:09
DX: G40.909 Epilepsy, unspecified, not intractable, without status epilepticus (principal)